=== PATIENT | male | born 1975 | race Caucasian/White ===

== ENCOUNTER 2019-01-31 17:00 | Outpatient (CLI) | payer OTHER | END 2019-01-31 17:01 | disposition home or self-care (01) | LOC: SLEEPLAB 17:00 | PROVIDERS: ATTEND Dentist General Practice | DX: G47.33 Obstructive sleep apnea (adult) (pediatric) (principal) | CPT/HCPCS: 95806 ==

== ENCOUNTER 2019-07-02 10:08 | Emergency (ER) | payer OTHER ==
[2019-07-02 10:54] LABS: Bilirubin Negative (Negative); Blood, Urine Negative (Negative); Clarity Clear (Clear); Glucose, Urine (Dipstick) Normal (Negative); Leukocyte Negative Leu/uL (Negative); Nitrite Negative (Negative); Protein, Urine (Dipstick) Negative (Neg-Trace); Urobilinogen Normal mg/dL (Less than 2)
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
[2019-07-02 11:20] LABS: #Basophils 0.1 thou/uL (0.0-0.2); #Eosinphils 0.2 thou/uL (0.0-0.7); #Lymphocytes 3.2 thou/uL (1.20-3.40); #Neutrophils 10.9 thou/uL (1.40-6.50); %Basophils 0.8 % (0.0-1.0); %Eosinophils 1.3 % (0.0-10.0); %Lymphocytes 20.5 % (21.0-51.0); %Monocytes 6.4 % (0.0-10.0); Mean Corpuscular HGB CONC 33.9 g/dL (32.0-36.0); Mean Corpuscular Hemoglobin 32.3 pg (27.0-31.0); Mean Corpuscular Volume 95.1 fL (78.0-98.0); Mean Platelet Volume 7.5 fL (7.4-10.4); Platelet Count 333 thou/uL (130-400); RBC Distribution Width 13.2 % (11.5-14.5); Red Blood Cell (RBC) Count 4.65 mill/uL (4.70-6.10); White Blood Cell (WBC) Count 15.4 thou/uL (4.8-10.8)
[2019-07-02 11:24] LABS: Amphetamine Not Detected (NotDetected); Barbiturates Screen Not Detected (NotDetected); Benzodiazepine Screen Not Detected (NotDetected); Cocaine Metabolite Screen Not Detected (NotDetected); Medtox Control Line Valid? VALID (VALID); Medtox Reader # READER 4; Methadone Not Detected (NotDetected); Methamphetamine Not Detected (NotDetected); Opiate Screen Not Detected (NotDetected); Oxycodone Screen Not Detected (NotDetected); Phencyclidine (PCP) Not Detected (NotDetected); THC/Cannabinoid Screen Not Detected (NotDetected); Tricyclic Screen Not Detected (NotDetected)
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
[2019-07-02 11:40] LABS: Acetaminophen Less than 6.0 mcg/mL (10.0-30.0); Alcohol Less than 10 mg/dL (Less than 10); Salicylate Less than 8.0 mg/dL (15.0-30.0)
[2019-07-02 11:41] LABS: ALT (SGPT) 97 U/L (8-55); AST (SGOT) 35 U/L (5-34); Alkaline Phosphatase 67 U/L (40-150); Anion Gap 14 mmol/L (10-20); BUN (Urea Nitrogen) 23 mg/dL (8.9-20.6); Bilirubin, Total 0.5 mg/dL (0.2-1.2); CK (CPK) 153 U/L (30-200); Calc. Creatinine Clearance 0 mL/min (70-130); Calcium 9.3 mg/dL (7.8-10.44); Carbon Dioxide 28 mmol/L (22-29); Chloride 96 mmol/L (98-107); Estimated GFR-MDRD 87; Globulin 1.9 g/dL (2.4-3.5); Glucose 162 mg/dL (70-105); Lipase 15 U/L (8-78); Potassium 4.4 mmol/L (3.5-5.1); Protein, Total 5.9 g/dL (6.0-8.3); Sodium 134 mmol/L (136-145)
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
== END 2019-07-02 12:50 | disposition home or self-care (01) ==
LOC: ERS 10:08
DX: E86.0 Dehydration (principal); I10 Essential (primary) hypertension; F17.210 Nicotine dependence, cigarettes, uncomplicated
CPT/HCPCS: 36415; 70450; 71046; 71260; 74177; 80053; 80306; 80307; 81003; 82550; 83605; 83690; 84484; 85025; 86850; 86900; 86901; 93005; 94760; 96360

== ENCOUNTER 2019-11-07 09:54 | Outpatient (CLI) | payer OTHER | END 2019-11-07 09:55 | disposition home or self-care (01) | LOC: CTENTCT 09:54 | PROVIDERS: ATTEND Specialist | DX: J32.9 Chronic sinusitis, unspecified (principal) | CPT/HCPCS: 70486 ==

== ENCOUNTER 2020-02-24 06:33 | Outpatient (CLI) | payer OTHER ==
[2020-02-24 17:43] LABS: Anion Gap 14 mmol/L (10-20); BUN (Urea Nitrogen) 16 mg/dL (8.9-20.6); Calc. Creatinine Clearance 0 mL/min (70-130); Calcium 9.5 mg/dL (7.8-10.44); Carbon Dioxide 22 mmol/L (22-29); Chloride 99 mmol/L (98-107); Estimated GFR-MDRD 84; Glucose 145 mg/dL (70-105); Potassium 4.3 mmol/L (3.5-5.1); Sodium 131 mmol/L (136-145)
[2020-02-25 10:56] LABS: SARS-CoV-2 MS2 Positive; SARS-CoV-2 N Gene Negative; SARS-CoV-2 S Gene Negative; SARS-CoV-2 orf1ab Negative
== END 2020-02-24 06:34 | disposition home or self-care (01) ==
LOC: LABBT 06:33
PROVIDERS: ATTEND Specialist
DX: Z01.812 Encounter for preprocedural laboratory examination (principal); Z11.59 Encounter for screening for other viral diseases; J32.9 Chronic sinusitis, unspecified; H90.5 Unspecified sensorineural hearing loss; J30.9 Allergic rhinitis, unspecified; G47.33 Obstructive sleep apnea (adult) (pediatric); R06.83 Snoring; J35.1 Hypertrophy of tonsils; K13.79 Other lesions of oral mucosa; R09.81 Nasal congestion; G47.10 Hypersomnia, unspecified; J34.3 Hypertrophy of nasal turbinates; K21.9 Gastro-esophageal reflux disease without esophagitis; E07.89 Other specified disorders of thyroid
CPT/HCPCS: 80048; 87635; U0003

== ENCOUNTER 2020-02-26 08:13 | Day surgery (SDC) | payer OTHER ==
[2020-02-24 16:53] VITALS: BMI 39.1
[2020-02-26] MEDS ORDERED: AFRIN NASAL MIST 15 ML BOT ONE ×2 (09:22→10:06)
[2020-02-26] MEDS ORDERED: Lidocaine 1% w/Epinephrine 1:100K 20 ML VIAL ONE (10:06)
[2020-02-26] MEDS ORDERED: Ferric Subsulfate (ASTRINGYN) 8 ML VIAL ONE (10:06)
[2020-02-26] MEDS ORDERED: methylPREDNISolone Sod Succ 40 MG VIAL ONE (10:08)
[2020-02-26] MEDS ORDERED: Fentanyl 100 MCG/2 ML VIAL ONE ×4 (10:08→14:49)
[2020-02-26] MEDS ORDERED: methylPREDNISolone Acetate 40 mg/ml Vial ONE (10:09)
[2020-02-26] MEDS ORDERED: EPINEPHrine 1 MG/ML AMP ONE (10:12)
[2020-02-26] MEDS ORDERED: SUGAMMADEX SODIUM 500 MG/5 ML VIAL ONE (11:44)
[2020-02-26] MEDS ORDERED: PROPOFOL 20 ML ONE (11:44)
[2020-02-26] MEDS ORDERED: PHENYLEPHRINE-NS 100 MCG/ML 10 ML SYRINGE ONE ×2 (11:52→13:15)
[2020-02-26] MEDS ORDERED: Phenylephrine 10 MG/ML VIAL ONE (11:52)
[2020-02-26] MEDS ORDERED: Racepinephrine 2.25% 0.5 ML NEB ONE (12:12)
[2020-02-26] MEDS ORDERED: Succinylcholine Chloride 20 MG/ML 10 ml SYRINGE FS ONE (13:15)
[2020-02-26] MEDS ORDERED: PROPOFOL 200 MG/20 ML VIAL ONE (13:15)
[2020-02-26] MEDS ORDERED: Ondansetron PF 4 MG/2 ML Vial ONE (13:15)
[2020-02-26] MEDS ORDERED: Rocuronium Bromide 10 MG/ML (10ML VIAL) ONE (13:15)
[2020-02-26] MEDS ORDERED: EPHEDRINE 25 MG/5 ML SYRINGE ONE (13:15)
[2020-02-26] MEDS ORDERED: Lidocaine 1% PF 5 ML VIAL ONE (13:15)
--- NOTE | 2020-02-26 17:36 | EKG ---
Test Reason : PREOP Blood Pressure : / mmHG Vent. Rate : 077 BPM Atrial Rate : 077 BPM P-R Int : 162 ms QRS Dur : 084 ms QT Int : 372 ms P-R-T Axes : 047 051 046 degrees QTc Int : 420 ms Normal sinus rhythm Normal ECG When compared with ECG of 02-JUL-2019 10:19, No significant change was found Confirmed by CORINE FLORENTINO, DR. Alexandre ([id number]) on 02/26/2020 5:35:41 PM Referred By: DAVID Confirmed By:DR. Baldomero POOL MD
--- NOTE | 2020-02-27 05:48 | OP ---
DATE OF PROCEDURE: 02/26/2020 PREOPERATIVE DIAGNOSES: Chronic sinusitis, hypertrophic inferior turbinates, sleep apnea, chronic tonsillitis, chronic peritonsillar abscess, uvular hypertrophy and severe sleep apnea with poor CPAP tolerance. POSTOPERATIVE DIAGNOSES: Chronic sinusitis, hypertrophic inferior turbinates, sleep apnea, chronic tonsillitis, chronic peritonsillar abscess, uvular hypertrophy and severe sleep apnea with poor CPAP tolerance. PROCEDURES PERFORMED: 1. Tonsillectomy over 12 years of age. 2. Uvulopalatopharyngoplasty. 3. Bilateral nasal endoscopy with submucosal resection of inferior turbinates. 4. Bilateral nasal endoscopy with maxillary antrostomy, bilateral nasal endoscopy with total ethmoidectomy, bilateral nasal endoscopy with frontal sinusotomy. PROCEDURE IN DETAIL: TONSILLECTOMY OVER 12 YEARS OF AGE: After consent was obtained, the patient was identified, brought to the operating room, and placed on the operating table in the supine position. General endotracheal anesthesia and intravenous access were obtained and we proceeded with positioning the patient for oropharyngeal surgery. Oropharyngeal exposure was obtained with a Anne-Jose Raul mouth gag after a head drape was placed and secured with a towel clip. The Anne-Jose Raul mouth gag was then suspended from the Jackson tray and palatal elevation was achieved with a red rubber catheter. The right tonsil was addressed first. We used a curved Allis to grasp the tonsil and retract it medially as an anterior pillar incision was made with a #12 blade. The retrotonsillar fascial plane was then established and blunt dissection was performed with the suction cautery. Blood vessels were anticipated, identified, and cauterized as they were encountered. Ultimately, dissection was carried to the posterior tonsillar pillar mucosa which was incised hemostatically, as well as the base of tongue connection. The tonsil was then passed off as a specimen and bleeding points within the tonsillar bed were cauterized under direct visualization. We subsequently turned our attention to the contralateral side, where using a similar technique, a near identical procedure was performed. Again, the tonsil was grasped and retracted medially with a curved Allis as an anterior pillar incision was made with a #12 blade. The retrotonsillar fascial plane was established and while the anterior pillar was retracted medially, the hemostatic blunt dissection of the tonsil with a suction cautery was performed with blood vessels anticipated, identified, and cauterized as they were encountered. Again, dissection continued to the base of tongue and posterior tonsillar pillar mucosa which was incised in a hemostatic fashion. The tonsillar beds were then carefully inspected and bleeding points were identified and cauterized with a suction cautery. After this portion of the procedure, hemostasis was completely obtained. The patient's oral cavity was copiously irrigated with iced saline and subsequently suctioned. We then used the red rubber catheter to suction the gastric contents and the patient was subsequently aroused, awakened, and extubated without difficulty and transported to the recovery room in stable condition. There were no complications. UVULOPALATOPHARYNGOPLASTY: A Anne-Jose Raul mouth gag was used to obtain exposure to the oropharynx. We then proceeded with a standard tonsillectomy. The tonsil was grasped and retracted medially as an anterior pillar incision was performed. We then established the retrotonsillar fascial plane and dissected along this plane with the suction cautery. Great care was made not to violate or injure any of the surrounding oropharyngeal mucosa. Ultimately, the posterior tonsillar pillar mucosa was incised, and the tonsil was removed. Identical technique was used on the contralateral side such that both sides of the oropharynx underwent a hemostatic tonsillectomy. Bleeding points were then examined, identified, and cauterized under direct visualization. We then turned our attention to the soft palate where the uvula was grasped, and vertical soft palate incisions were created on both sides of the large uvula. We then performed a horizontal incision, thus transecting the uvula from the surrounding soft palate. We then performed crescentic excisions of the anterior tonsillar pillar mucosa. The posterior pillar mucosa was then reapproximated to the anterior pillar mucosa with 3-0 interrupted Vicryl sutures. This was done throughout the entirety of the oropharynx such that minimal tension was left on the posterior oropharyngeal mucosa. Ultimately, the nasal cavity, oral cavity, oropharynx, and nasopharynx were copiously irrigated, suctioned, and all bleeding was controlled. There were no complications. The patient tolerated the procedure well and was discharged to the recovery room in stable condition prior to return to the preoperative Day Stay with ultimate discharge home. Prescriptions for pain medication and antibiotics were provided. The patient received intramuscular Depo-Medrol during the case. BILATERAL NASAL ENDOSCOPY WITH SUBMUCOSAL RESECTION OF INFERIOR TURBINATES: Consent was obtained, notifying the patient of the possibility of additional infections, bleeding, brain injury, and eye/orbital injury. The patient was placed on the operating room table, and general endotracheal anesthesia and intravenous access was obtained. The patient was then positioned, prepped and draped for endoscopic sinus surgery. Nasal preparation included trimming nasal vestibular hairs and spraying in topical Afrin. We then placed Afrin topical solution on nasal pledgets and strategically located them intranasally. The perinasal mucosa was injected with 1% lidocaine with 1:100,000 epinephrine in the submucoperichondrial plane of the septum, lateral nasal wall, and anterior to the uncinate. The patient was then prepped and draped in a sterile fashion and positioned for endoscopic sinus surgery. With the 0-degree endoscope, the patient underwent systematic nasal endoscopy. There were no suspicious internasal masses or lesions identified. We then focused our attention to the osteomeatal complex region under the middle turbinate. The inferior turbinates were visualized with a 0 degree endoscope and outfractured with a Amma elevator. The inferior medial aspect was cauterized with the electrocautery. Hemostasis was obtained . After adequate airway was established, we turned our attention to the contralateral side and used a similar procedure. Again, a Amma elevator was used to outfracture inferior turbinates under endoscopic visualization. With a suction cautery, the free inferior medial aspect was cauterized under direct visualization along the length of the inferior turbinate. At this point, we then turned our attention to the contralateral side and proceeded with endoscopic sinus surgery. At the completion of the case, Rice keel splints were placed in the ethmoid cavities after the ethmoidectomy. There were no complications. The patient tolerated the procedure well and was discharged to the recovery room in stable condition prior to return to the preoperative day stay with ultimate discharge home. Prescriptions for pain medication and antibiotics were provided. The patient received intramuscular Depo-Medrol during the case. BILATERAL NASAL ENDOSCOPY WITH MAXILLARY ANTROSTOMY: The uncinate was then identified and the extent of the uncinate was appreciated by out-fracturing the uncinate with the ball-tip probe. We then used the sickle blade to disarticulate the uncinate from the lateral nasal wall. This was then removed with straight biting and upbiting punches with the remaining shrouds of mucosa and bony septum removed with the micro-debrider. The natural os of the maxillary sinus was then identified and enlarged with the maxillary punches and back biting forceps. BILATERAL NASAL ENDOSCOPY WITH TOTAL ETHMOIDECTOMY: The anterior face of the ethmoid bulla was entered and with the micro-debrider, dissection continued posteriorly to the ground lamella. The limits of dissection included the insertion of the middle turbinate, medial orbital wall, and base of skull. We similarly identified the frontal recess and removed shrouds of bone and debris in that region to obtain patency into the agger nasi region and frontal recess. We then entered the ground lamella and its anteroinferior aspect and proceeded posteriorly, opening the posterior ethmoid air-cell system. Again, the limits of dissection included the base of skull and medial orbital wall. BILATERAL NASAL ENDOSCOPY WITH FRONTAL SINUSOTOMY: Following the ethmoidectomy, we then turned our attention to the frontal nasal recess. The agger nasi cells were addressed and the frontal recess was exposed. The natural opening to the frontal sinus was identified. At this point, any obstructing shrouds of mucosa and bony fragments were removed with a curved microdebrider. The wound was then examined and found to be free of any obstructing debris. We then turned our attention to the contralateral side and performed a similar procedure again under endoscopic visualization using a 45-degree scope. We were able to visualize the frontal recess. Obstructing shrouds of mucosa and bone were removed with a microdebrider. The natural os of frontal sinus was identified and enlarged and irrigated. At this point, the frontal sinusotomy was completed and we turned to the next area of concern. Job ID: [id number]
== END 2020-02-26 17:51 | disposition home or self-care (01) ==
LOC: SDC 08:13
PROVIDERS: ATTEND Specialist
PROC: 099Q8ZZ Drainage of Right Maxillary Sinus, Via Natural or Artificial Opening Endoscopic (ICD-10-PCS; principal; 2020-02-26)
PROC: 09BV8ZZ Excision of Left Ethmoid Sinus, Via Natural or Artificial Opening Endoscopic (ICD-10-PCS; principal; 2020-02-26)
PROC: 099R8ZZ Drainage of Left Maxillary Sinus, Via Natural or Artificial Opening Endoscopic (ICD-10-PCS; principal; 2020-02-26)
PROC: 09BT8ZZ Excision of Left Frontal Sinus, Via Natural or Artificial Opening Endoscopic (ICD-10-PCS; principal; 2020-02-26)
PROC: 09BU8ZZ Excision of Right Ethmoid Sinus, Via Natural or Artificial Opening Endoscopic (ICD-10-PCS; principal; 2020-02-26)
PROC: 0CTPXZZ Resection of Tonsils, External Approach (ICD-10-PCS; principal; 2020-02-26)
PROC: 09BL8ZZ Excision of Nasal Turbinate, Via Natural or Artificial Opening Endoscopic (ICD-10-PCS; principal; 2020-02-26)
PROC: 09BS8ZZ Excision of Right Frontal Sinus, Via Natural or Artificial Opening Endoscopic (ICD-10-PCS; principal; 2020-02-26)
DX: J35.01 Chronic tonsillitis (principal); J32.9 Chronic sinusitis, unspecified; J30.9 Allergic rhinitis, unspecified; G47.33 Obstructive sleep apnea (adult) (pediatric); K13.79 Other lesions of oral mucosa; J34.3 Hypertrophy of nasal turbinates; I10 Essential (primary) hypertension; F32.9 Major depressive disorder, single episode, unspecified; H90.5 Unspecified sensorineural hearing loss; K21.9 Gastro-esophageal reflux disease without esophagitis; Z79.899 Other long term (current) drug therapy; Z88.5 Allergy status to narcotic agent
CPT/HCPCS: 88302; 88304; 93005; 93010; J0171; J2001; J2370; J2405; J2704; J2920; J2960; J3010

== ENCOUNTER 2020-02-27 02:36 | Emergency (ER) | payer OTHER ==
[2020-02-27] MEDS ORDERED: Morphine 10 MG/ML VIAL ONE (02:55)
== END 2020-02-27 04:50 | disposition home or self-care (01) ==
LOC: ERS 02:36
DX: G89.18 Other acute postprocedural pain (principal); R07.0 Pain in throat; I10 Essential (primary) hypertension; F17.290 Nicotine dependence, other tobacco product, uncomplicated; Z79.899 Other long term (current) drug therapy
CPT/HCPCS: 96372; 99283; J2270

== ENCOUNTER 2020-03-04 09:25 | Emergency (ER) | payer OTHER ==
[2020-03-04] MEDS ORDERED: Morphine 10 MG/ML VIAL ONE (09:52)
== END 2020-03-04 10:19 | disposition home or self-care (01) ==
LOC: ERS 09:25
DX: G89.18 Other acute postprocedural pain (principal); R07.0 Pain in throat; I10 Essential (primary) hypertension; F17.290 Nicotine dependence, other tobacco product, uncomplicated; Z98.890 Other specified postprocedural states; Z79.899 Other long term (current) drug therapy
CPT/HCPCS: 96372; 99283; J2270